=== PATIENT | female | born 1960 | race Caucasian/White ===

== ENCOUNTER 2018-04-04 07:50 | Day surgery (SDC) ==
[2018-04-04] MEDS ORDERED: LIDOCAINE 1% 20 ML MDV ID STA (09:13)
[2018-04-04] MEDS ORDERED: ANECTINE ONE (09:30)
[2018-04-04] MEDS ORDERED: SUBLIMAZE ONE (09:30)
[2018-04-04] MEDS ORDERED: VERSED ONE (09:30)
[2018-04-04] MEDS ORDERED: DIPRIVAN 20 ML VIAL IVP ONE (09:30)
[2018-04-04 13:40] VITALS: BP 118/72; TEMP 98.2
--- NOTE | 2018-04-07 09:22 | OP ---
PREOPERATIVE DIAGNOSIS: ACUTE ON CHRONIC LARYNGITIS POSTOPERATIVE DIAGNOSIS: ACUTE ON CHRONIC LARYNGITIS OPERATION: DIRECT LARYNGOSCOPY AND BIOPSY . PROCEDURE: The patient was taken to surgery, placed on the table and general anesthesia was administered. An anterior laryngoscope was inserted down to the level of the vocal cords and then using a 400mm lens on a Zeiss 26 scope and the cords were inspected. There is chronic inflammation present but no evidence of polyps. A biopsy was taken of the right false cord area which showed no inflammation. Minimal bleeding. The patient was then extubated and returned to the recovery room in satisfactory condition. LES
== END 2018-04-04 10:45 | disposition home or self-care (01) ==
LOC: SURG 07:50
PROVIDERS: ATTEND Otolaryngology
DX: J04.0 Acute laryngitis (principal)
CPT/HCPCS: 31536

== ENCOUNTER 2018-07-04 13:35 | Outpatient (RCR) ==
--- NOTE | 2018-07-07 09:20 | RS.OTEVAL ---
Subjective Date of Note: 07/04/18 Visit #: 1 Number of visits approved by Insurance: waiting for approval Date of Evaluation: 07/04/18 Payer Source: Medicaid Date of Onset/Injury/Change in Status: 04/24/18 Surgery Performed?: Yes Date of Procedure: 05/05/18 Treatment Diagnosis: Left Wrist fracture Treatment Side (optional): Left *Precautions: heat in wrist Prior Level of Function.....Patient was independent with: ADL's, Self Care, Work /Vocation, Caregiving, Ambulation/Mobility, Community Integration/Access History of Condition/Mechanism of Injury: Pt fell on 04/24/18 and then had surgery to Left wrist and had a two plates and screws put in with fractured both radius and ulna. Pt has redness in Left wrist and heat and edema of digits with shiney skin. Pt reports tips of digits have pain level of 10/10. Level of Function: 80% impaired according to the self assessment of the upper extremity functional index. Functional Limitations: Sleep, Self Care, ADL's, Reaching, Pushing, Pulling, Lifting, Carrying, Sitting Current Complaints/Gains: Pt has difficulty getting comfortable due to her increased LUE shoulder pain. Pt has limited LUE shoulder flexion, extension, abduction, Internal rotation and external rotation. Pt has increased pain to the point of crying during the initial evaluation. Pt was assisted to supine position to assess Internal and external rotation. Pt was not able to assume the abduction to measure the Int. Rot. or the Ext. Rot. Pt was in too much pain. Pt is not able to groom her hair, difficulty with preparing food, and not able to clean her house. Pt is not able to tie her shoes, throw a ball, open a jar, do buttons, or pushup on your hands, lift groceries. Pt has heat and redness in her LUE digits, hand, and wrist. Pt has shiney skin and pain at tips of digits is rated at 10/10. Pt reports she cannot complete LUE full digit flexion or extension and has extreme pain. Medical History Medical History Comments:: back surgery, vocal cord biopsy, metal plate in left wrist, BP, severe allergies, chronic cough. Surgical History Comments:: Surgery to the Left wrist on 05/05/18. Pt reports she fractured both bones and has 2 plates with screws. Hx Home Medications: Hydrocodone, pravastatine, montelukast, thyroid, gabapentin , losartan, lansopraxole, furosemide, citalopram, amlodipine, buspirone, aspirin , sanjeev, flonase, diazepam. Patient's Goals: To be able to use the LUE with out pain and without limitations. Pain Assessment - Pain Description Pain Description: Burning, Tightness, Sharp, Aching, Chronic Pain Location: Left shoulder, left wrist, left hand, finger tips. Pain Description: sharp pain 10/10 at finger tips. Current Pain Intensity: 4/10 Worst Pain Intensity: 10/10 Functional Outcome Measures UE Functional Index: 80 - G Codes & Severity Modifier G Codes: . Source of G Code score: . Observation - Observation Posture: Rounded Shoulders Handedness: Right Girth Measurement Upper: Measurements for the LUE digits and hand: Thumb is 8.9 cm, Index is 8.6 cm, Long digit is 8.2 cm, ring digit 8.0 cm, small digit is 7.0 cm. Palmar crease is 21.8 cm. Wrist is 18.7 cm. RUE digits and hand: Thumb digit is 7.0 cm, Index digit is 6.9 cm, long digit is 6.5 cm, ring digit 6.2 cm, small digit is 5.9 cm. Additional Comments: Pt has impaired sensation of the LUE digits. Pt reports hypersensitivity to touch of LUE digits and to wrist and forearm. Shoulder ROM: Right WFL's Shoulder Muscle Strength: Right WFL's - Right Shoulder ROM Right Shoulder Flexion: 110 Right Shoulder Extension: 30 Right Shoulder Abduction: 80 Right Shoulder Internal Rotation: 0 Right Shoulder External Rotation: 0 Right Shoulder ROM Limitations: Soft Tissue Tightness, Muscle Weakness, Pain - Left Shoulder Strength Left Shoulder Flexion: 3- Fair- Left Shoulder Extension: 3- Fair- Left Shoulder Abduction: 2+ Poor+ Left Shoulder Adduction: 3- Fair- Left Shoulder External Rotation: 2+ Poor+ Left Shoulder Internal Rotation: 2+ Poor+ Comments: Pt has extreme pain with LUE shoulder and wrist and hand movement. - Right Shoulder Strength Right Shoulder Flexion: 4+ Good + Right Shoulder Extension: 4+ Good + Right Shoulder Abduction: 4+ Good + Right Shoulder Adduction: 4+ Good + Right Shoulder External Rotation: 4+ Good + Right Shoulder Internal Rotation: 4+ Good + - Special Tests Shoulder Chao-Manav Impingement Test: Positive Left Elbow ROM: Bilaterally WFL's Elbow Muscle Strength: Right WFL's - Left Elbow Strength Left Elbow Extension: 3 Fair Left Elbow Flexion: 3 Fair Left Forearm Pronation: 3- Fair- Left Forearm Supination: 2+ Poor+ - Right Elbow Strength Right Elbow Extension: 4+ Good + Right Elbow Flexion: 4+ Good + Right Forearm Pronation: 4+ Good + Right Forearm Supination: 4+ Good + Wrist ROM: Right WFL's Wrist Muscle Strength: Right WFL's - Left Wrist/Hand ROM Left Wrist Extension: 0 Left Wrist Flexion: 15 Left Wrist Ulnar Deviation: 0 Left Forearm Pronation: 35 Left Forearm Supination: 40 Left Wrist ROM Testing Limitations: Pain Left Hand ROM: Pt has limited AROM due to edema of digits, hand, and wrist. - Left Wrist Strength Left Wrist Flexion: 2+ Poor+ Left Wrist Radial Deviation: 2+ Poor+ Left Wrist Ulnar Deviation: 2+ Poor+ Left Forearm Pronation: 2+ Poor+ Left Forearm Supination: 2+ Poor+ - Pillar Man Strength Left Pillar Man Strength: 0 (n/a) Pillar Man Strength Left Hand Pillar Man Strength: n/a Palpation Palpation Findings: Tenderness, Trigger Point, Muscle Guarding Comments:: in LUE shoulder, wrist, digits Sensation Right Upper Extremity: Intact/Normal Left Upper Extremity: Impaired Comments: Pt has impaired sensation of the Left digits. Pt has hypersensitive tips of digits. Pt has impaired proprioception of the RUE digits. LUE - Patient is able to recognize 4.31 monofilament with volar LUE digits. Pt has difficulty with 3.61 monofilament proprioception of the long digit. Pt is able to recognize 2.83 monofilament. Modalities - Hot Pack/Cryotherapy Treatment: Cryotherapy (Pt's digits wrapped with coban to decrease inflammation for 20 minutes. Pt was able to move her LUE digits more after the wrapping was removed. Pt reported the pain had decreased. ) Interventions - Exercise/Activities Exercise/Activities/Manual Therapy: Patient was educated regarding LUE Hand pumps to decrease the edema and increase the AROM of hand/wrist. Patient was shown a picture of an isotoner glove and how to get one. Patient said she would get one. Patient was educated regarding elevation, hand pumps, compression garments, light massage to hand, wrist, and forearm and icing. Patient tolerated manual therapy to the LUE shoulder to decrease pain and increase AROM of LUE shoulder, wrist, and hand. HOME EXERCISE PROGRAM: Hand pumps, opposition, wrist flexion/extension, supination/pronation. Pt educated regarding compression glove, and icing to get the edema down, the pain to decrease, and decrease inflammation. Pt educated regarding elevation. - Charges Timed Code Treatment Minutes: 75 Total Treatment Time: 120 Procedures billed for this date of service:: Evaluation medium, MT x 2, CP EVALUATION COMPLEXITY LEVEL: HISTORY: Medium, EXAM OF BODY SYSTEMS: Medium, CLINICAL DECISION MAKING: Medium Assessment Assessment: Pt is in extreme pain in LUE shoulder and wrist due to a fall in April and fractured Left wrist requiring surgery. Pt has edema, heat, and redness of left hand/wrist. Pt is hypersensitive on the tips of the LUE digits. Pt has impaired sensation of digits and proprioception of Left digits. Pt has limited AROM of LUE due to the pain, heat, and redness. Pt has shiney skin and is requiring compression glove to calm the extremity down. Rehab Potential: Good Problems/Comments: Pt may have another problem such as possible RSD in the Left wrist due to extreme pain which is limiting the patient's ability to move the LUE wrist, hand, and digits. OT to educate patient regarding compression glove and ice to calm the LUE. Short Term Goals Goal #1: To be able to make 80% of a full fist. Goal to be met by: 07/18/18 Goal #2: Pt pain level to decrease 2-4/10 in the LUE. Goal to be met by: 07/18/18 Goal #3: Pt to LUE increase auto parts delivery driver to 25#. Goal to be met by: 07/18/18 Goal #4: To be (I) with home exercise program. Goal to be met by: 07/18/18 Industrial Sociologist Goals Goal #1: Pt to be able to make a full fist. Goal to be met by: 08/15/18 Goal #2: Pt pain level to decrease 0-2/10 in the LUE. Goal to be met by: 08/15/18 Goal #3: Pt to increase LUE auto parts delivery driver to 40#. Goal to be met by: 08/15/18 Goal #4: Pt to have full AROM of LUE to increase independence of ADLS. Goal to be met by: 08/15/18 Plan - Treatment to be provided Procedures: Therapeutic Exercises, Therapeutic Activity, Neuromuscular Rehab, Manual Therapy, Patient Education Modalities: Electrical Stimulation, Ultrasound/Phonophoresis, Cryotherapy, Hot Packs - Treatment Plan Frequency: 2 X week Duration: 6 weeks Dates of Industrial Sociologist Goals: 08/15/18 Expiration date of current Insurance Approval:: Waiting for approval - Treatment Code (1) Hand pain, left Code(s): M79.642 - PAIN IN LEFT HAND Comments: M79.642 Left hand pain. (2) Shoulder pain, left Code(s): M25.512 - PAIN IN LEFT SHOULDER Qualifiers: Chronicity: acute Qualified Code(s): M25.512 - Pain in left shoulder Comments: M25.512 Left shoulder pain. (3) Joint stiffness Code(s): M25.60 - STIFFNESS OF UNSPECIFIED JOINT, NOT ELSEWHERE CLASSIFIED (4) Joint stiffness Code(s): M25.60 - STIFFNESS OF UNSPECIFIED JOINT, NOT ELSEWHERE CLASSIFIED Comments: M25.60 Joint stiffness
== END 2018-07-18 23:59 ==
PROVIDERS: ATTEND Orthopaedic Surgery
DX: S62.102D Fracture of unspecified carpal bone, left wrist, subsequent encounter for fracture with routine healing (principal)

== ENCOUNTER 2018-07-15 09:45 | Outpatient (RCR) ==
--- NOTE | 2018-06-24 11:59 | RS.SP/LANG ---
Subjective Number of treatment sessions: 1 Date of Evaluation: 06/24/18 Date of Onset/Injury/Change in Status: 01/30/18 Surgery Performed?: No Diagnosis: Chronic Laryngitis Current Level of Function: This 57 year old female was referred due to chronic laryngitis that has occurred for approximately six months. She has a hx of allergies, chronic cough lasting for 15 years, and occasional laryngitis for one to two weeks. However, at this time her last episode of laryngitis has not resolved and symptoms impact her daily life. Current Subjective/complaints:: The patient reported that she has frequent hard coughing that results in pain in her hips. She can not stop the coughing and it irritates her voice. The patient also has allergies that cause chronic post nasal drip and mucous production increasing her throat clearing habits. When the patient first noticed the laryngitis, she reported she could not phonate or use her voice for several months. However, after becoming sick and resting her voice, she has been able to phonate for approximately one month. Medical History Comments:: back surgery, vocal cord biopsy, metal plate in left wrist, BP, severe allergies, chronic cough. Hx Home Medications: Hydrocodone, pravastatine, montelukast, thyroid, gabapentin , losartan, lansopraxole, furosemide, citalopram, amlodipine, buspirone, aspirin , sanjeev, flonase, diazepam. Patient's Goals: To improve vocal quality. Information History:: Per patient report: January 29, 2018 the patient underwent a colonoscopy. Upon waking up, she noticed feeling sick and was coughing. On January 30 she could not use her voice and felt she had laryngitis. The laryngitis was persistant and the severity of no voice production. The patient verbalized this continued for several months and she could whisper, but could not start her voice or produce any noise. She also was treating a chronic cough using cough syrup, cough drops, and peppermints. However, none of her symptoms improved. In May of 2018, she became sick and rested for three to four days with limited vocal productions. At this point, she could phonate and produce sound with her voice, and she has continued to have voice production for approximateyl four weeks. However, she continues to have a chronic cough and her voice quality is breathy, strained, and hoarse. Informal Assessment:: The REFRIGERATOR REPAIR TECHNICIAN assessed her voice production during the interview and discussed her vocal hygiene habits. The patient was also assessed with her preventative care, methods, and strategies to compensate for her voice quality. During the assessment, the patient maintained poor vocal quality, but phonated on command without difficulty. She reported no pain or associated muscle tension in the laryngeal carriage. Her vocal hygiene was limited and demonstrated unhealthy voice habits including, hard coughing and frequent throat clearing. She also takes three different allergy medications that have side effects to dry the laryngeal structures. The patient has poor water intake and does not use steam or humidification to treat or hydrate voice. Analysis:: The patient demonstrates severe difficulties with vocal production and poor vocal hygiene habits. At this time, allergies and chronic cough also attribute to laryngitis and vocal quality. Summary and Recommendations:: The REFRIGERATOR REPAIR TECHNICIAN recommends voice therapy for education and training with vocal structures, vocal hygiene program, and trialing voice techniques to improve general vocal production. Functional Reporting G Codes: n/a Severity Impairment Rationale: n/a Short Term Goals Problem: voice production Goal #1: Pt to verbalize and demon. vocal hygiene routine. Goal to be met by: 07/22/18 Problem: voice production Goal #2: Pt to use vocal rest 10min/60 min to reduce vocal strain Goal to be met by: 07/22/18 Problem: Voice quality Goal #3: Pt to use vocal techniques to improve vocal quality Goal to be met by: 07/22/18 Supervisor Pressing Department Goals Problem: Voice production Goal #1: Pt to phonate 30 w/i structure convo w/o vocal fatigue Goal to be met by: 07/30/18 Problem: Vocal quality Goal #2: Pt to phonate w/o hoarse quality during structured convo. Goal to be met by: 07/30/18 Plan Duration of Treatment: 6 weeks Frequency of Treatment: 1x/week Anticipated Discharge Destination: Home - Treatment Code (1) Laryngitis Code(s): J04.0 - ACUTE LARYNGITIS (2) Voice and resonance disorder, unspecified Code(s): R49.9 - UNSPECIFIED VOICE AND RESONANCE DISORDER
--- NOTE | 2018-06-30 11:27 | RS.SLTREAT ---
Speech/Language Treatment Note Date of Note: 06/30/18 Visit #: 2 Time of Treatment: 10:15 Subjective: Pt reported multiple changes with her vocal hygiene routine. She stated primary improvement was reducing throat clearing. She also stated increasing her water intake 50%. She also will change her allergy medication regimen to reduce mucous. Vocal rest has improved as well. However, she had not noted any changes in vocal quality post five days of therapy program. Total treatment time: 45 - Short Term Goals Goal #1: Pt to verbalize and demon. vocal hygiene routine. Activity/Accuracy: Pt verbalized improving vocal hygiene 50% with hydration, 50- 75% with vocal rest and throat clearing. Goal #2: Pt to use vocal rest 10min/60 min to reduce vocal strain Activity/Accuracy: Vocal rest completed with mild difficulty to follow regimen. Goal #3: Pt to use vocal techniques to improve vocal quality Activity/Accuracy: Pt attempted vocal techniques with a model from the RECEPTIONIST NURSE. Lip trills, hmm-sigh, and forward focus were achieved with 40-50% accuracy. Vocal quality improved from breathy to hoarse 3x. - Care Home Goals Goal #1: Pt to phonate 30 w/i structure convo w/o vocal fatigue Goal #2: Pt to phonate w/o hoarse quality during structured convo. Assessment: Pt was assessed with vocal hygiene regimen and vocal techniques. Pt required written instructions to follow for increased performance with vocal hygiene. For vocal techniques, pt requried a model and frequent cueing for breath support and reduced tension. She also requried increased awareness for forward focus and producing a vocal production. - Units Charged Speech Therapy: 3 Swallowing Therapy: 0
--- NOTE | 2018-07-15 10:48 | RS.SLTREAT ---
Speech/Language Treatment Note Date of Note: 07/15/18 Visit #: 3 Time of Treatment: 10:00 Subjective: Pt had multiple changes since last tx session. Primary change was with voicing ability. BOOK OR SCRIPT EDITOR noted pt with a gravel quality to voice. Pt phonated intermittently with the gravel quality during the session. She also verbalized increased awareness to her throat clearing behaviors, increased hydration, and improved vocal rest throughout the day. The patient stated her cough medication was helping with reducing her coughing episodes. And she has a scheduled appointment with her ENT tomorrow this date. Total treatment time: 45 - Short Term Goals Goal #1: Pt to verbalize and demon. vocal hygiene routine. Activity/Accuracy: Pt verbalized three important aspects of vocal hygiene routine including, throat clears, vocal rest, and hydration. She is also implementing reducing risk to exposure to outside chemicals, and taking allergy medications to recuce mucous production. Goal #2: Pt to use vocal rest 10min/60 min to reduce vocal strain Activity/Accuracy: Pt verbalized completing frequently each day atleast 3x/day. Goal #3: Pt to use vocal techniques to improve vocal quality Activity/Accuracy: Pt completed phase 1 of forward focus. She demonstrated 2/3 techniques with mild difficulty. - [facility] Goals Goal #1: Pt to phonate 30 w/i structure convo w/o vocal fatigue Goal #2: Pt to phonate w/o hoarse quality during structured convo. Assessment: Pt was assessed with vocal quality, vocal hygiene, and techniques. She demonstrated no difficulties with vocal hygiene regimen and no changes were discussed this date. Vocal techniques with Resonant voice therapy using forward focus were completed. Pt required max cues for posture, neck tension, and breath support. Once these variables were reduced, pt demonstrated 2/3 "hmm" techniques with forward focus over 20 trials. - Units Charged Speech Therapy: 3 Swallowing Therapy: 0
== END 2018-07-18 23:59 ==
PROVIDERS: ATTEND Otolaryngology
DX: J37.0 Chronic laryngitis (principal); J38.3 Other diseases of vocal cords